=== PATIENT | female | born 1935 | race Caucasian/White ===

== ENCOUNTER 2018-01-24 13:56 | Day surgery (SDC) | payer MEDICARE ==
[2018-01-22 12:28] LABS: Hematocrit 23.7 % (33.0-51.0); Hemoglobin 7.7 g/dL (11.5-16.0); Mean Corpuscular HGB 34.1 pg (26.0-34.0); Mean Corpuscular HGB Conc 32.5 g/dL (31.5-36.5); Mean Corpuscular Volume 105 fL (80-100); RDW Coefficient Variation 22.9 % (11.7-14.2); RDW Standard Deviation 83.2 fL (35.1-46.3); Red Blood Cell Count 2.26 M/mm3 (3.80-5.20)
[2018-01-22 12:48] LABS: Platelet Count 27 K/mm3 (150-400)
[2018-01-22 13:28] LABS: BASOPHILS PERCENT MAN 0 % (0-2); LYMPHOCYTES PERCENT MAN 39 % (21-46); SEG NEUTROPHILS PERCENT MAN 55 % (41-73)
[2018-01-22 13:47] LABS: BAND PERCENT MAN 2 % (0-8); EOSINOPHILS PERCENT MAN 0 % (0-6); LYMPHOCYTES % ATYPICAL MANUAL 1 % (0-0); LYMPHOCYTES ABSOLUTE MAN 0.84 K/mm3 (0.84-5.20); MONOCYTES ABSOLUTE MAN 0.04 K/mm3 (0.16-1.47); MONOCYTES PERCENT MAN 2 % (4-13); NEUTROPHILS ABSOLUTE MAN 1.19 K/mm3 (1.96-9.15); TOTAL CELLS COUNTED 92
[2018-01-24] MEDS ORDERED: METF500C PO (14:35)
[2018-01-24] MEDS ORDERED: DILT120ERA PO (14:36)
[2018-01-24] MEDS ORDERED: LOSA50 PO (14:37)
[2018-01-24] MEDS ORDERED: ATOR10 PO (14:37)
[2018-01-24] MEDS ORDERED: LATANOPROST2.5 ML BOTHEYES (14:38)
[2018-01-24] MEDS ORDERED: GLIP5 PO (14:39)
[2018-01-24] MEDS ORDERED: SERT100 PO (14:39)
[2018-01-24] MEDS ORDERED: TIMO10T BOTHEYES (14:40)
[2018-01-24] MEDS ORDERED: ALLO100 PO (14:40)
[2018-01-24] MEDS ORDERED: SITA50T2 PO (14:41)
== END 2018-01-24 18:05 | disposition home or self-care (01) ==
LOC: ATC 13:56 → LAB 13:56 → ATC 14:00
PROVIDERS: Internal Medicine Hematology & Oncology
DX: D46.9 Myelodysplastic syndrome, unspecified (principal); D63.0 Anemia in neoplastic disease; D69.6 Thrombocytopenia, unspecified
CPT/HCPCS: 36415; 36430; 85025; 86850; 86900; 86901; 86923; J7050; P9016

== ENCOUNTER 2018-01-30 13:21 | Day surgery (SDC) | payer MEDICARE ==
[2018-01-29 10:28] LABS: BASOPHILS ABSOLUTE AUTO 0.01 K/mm3 (0.00-0.23); BASOPHILS PERCENT AUTO 1 % (0-2); EOSINOPHILS ABSOLUTE AUTO 0.05 K/mm3 (0.00-0.68); EOSINOPHILS PERCENT AUTO 3 % (0-6); Hematocrit 27.9 % (33.0-51.0); Mean Corpuscular HGB Conc 32.3 g/dL (31.5-36.5); RDW Coefficient Variation 21.3 % (11.7-14.2); RDW Standard Deviation 76.8 fL (35.1-46.3); Red Blood Cell Count 2.73 M/mm3 (3.80-5.20); White Blood Cell Count 1.72 K/mm3 (4.00-11.30)
[2018-01-29 10:39] LABS: IMMATURE GRAN PERCENT AUTO 0 % (0-1); LYMPHOCYTES ABSOLUTE AUTO 0.81 K/mm3 (0.84-5.20); LYMPHOCYTES PERCENT AUTO 47 % (21-46); MONOCYTES PERCENT AUTO 12 % (4-13); Mean Corpuscular Volume 102 fL (80-100); NEUTROPHILS ABSOLUTE AUTO 0.65 K/mm3 (1.96-9.15); NEUTROPHILS PERCENT AUTO 38 % (41-73)
[2018-01-29 10:46] LABS: Platelet Count 11 K/mm3 (150-400)
[~2018-01-30 13:21] MED LIST: ALLO100 PO; ATOR10 PO; DILT120ERA PO; GLIP5 PO; LATANOPROST2.5 ML BOTHEYES; LOSA50 PO; METF500C PO; SERT100 PO; SITA50T2 PO; TIMO10T BOTHEYES
== END 2018-01-30 23:05 | disposition home or self-care (01) ==
LOC: ATC 13:21
PROVIDERS: Internal Medicine Hematology & Oncology
DX: D46.9 Myelodysplastic syndrome, unspecified (principal); D63.0 Anemia in neoplastic disease; D69.6 Thrombocytopenia, unspecified
CPT/HCPCS: 36415; 36430; 85025; 86900; 86901; J7050; P9035

== ENCOUNTER 2018-06-01 00:47 | Day surgery (SDC) | payer OTHER ==
[~2018-06-01 00:47] MED LIST changes: +ANECREAM515 GM TOP; +BENADRYL25 MG PO; +CEPH500 PO; +CHOL10002 PO; +DOCU100 PO; +FURO20 PO; +GAVILAX17 GM PO; +GLIP10 PO; +LOSA25 PO; +Loperamide2 MG PO; +MUPIROCIN15 GM TOP; +ONDA8 PO; +VALACYCLOVIR1000 MG PO; +Ventolin5 MG/1 ML; +Zofran Odt8 MG SL
--- NOTE | 2018-06-01 17:05 | NUR ---
LS AT COMPLETION OF TRANSFUSION: FAINT WHEEZES R MIDDLE AND LOWER LOBES. PT DENIES SOB. NAD.
== END 2018-06-01 16:41 | disposition home or self-care (01) ==
LOC: ATC 00:47
DX: D46.20 Refractory anemia with excess of blasts, unspecified (principal); D63.0 Anemia in neoplastic disease; D69.6 Thrombocytopenia, unspecified; Z87.891 Personal history of nicotine dependence; E11.9 Type 2 diabetes mellitus without complications; Z83.3 Family history of diabetes mellitus; Z99.3 Dependence on wheelchair; D70.9 Neutropenia, unspecified
CPT/HCPCS: 36430; 86900; 86901; J1642; J7050; P9035

== ENCOUNTER 2018-06-02 19:24 | Inpatient (IN) | payer OTHER ==
[~2018-06-02] VITALS: Ht 165.1 cm; Wt 102.4 kg
[2018-06-02 20:00] LABS: Hematocrit 25.1 % (33.0-51.0); Mean Corpuscular HGB 36.9 pg (26.0-34.0); Mean Corpuscular HGB Conc 31.9 g/dL (31.5-36.5); Mean Corpuscular Volume 116 fL (80-100); Mean Platelet Volume 11.2 fL (9.1-12.4); NRBC ABSOLUTE 0.02 K/mm3 (0.00-0.02); NRBC Auto 2.6 /100 WBC (0.0-0.2); RDW Coefficient Variation 18.9 % (11.7-14.2); RDW Standard Deviation 81.9 fL (35.1-46.3); Red Blood Cell Count 2.17 M/mm3 (3.80-5.20)
[2018-06-02 20:03] LABS: BASOPHILS PERCENT AUTO 0 % (0-2); EOSINOPHILS ABSOLUTE AUTO 0.05 K/mm3 (0.00-0.68); EOSINOPHILS PERCENT AUTO 7 % (0-6); IMMATURE GRAN PERCENT AUTO 0 % (0-1); LYMPHOCYTES ABSOLUTE AUTO 0.69 K/mm3 (0.84-5.20); LYMPHOCYTES PERCENT AUTO 90 % (21-46); MONOCYTES ABSOLUTE AUTO 0.01 K/mm3 (0.16-1.47); MONOCYTES PERCENT AUTO 1 % (4-13); NEUTROPHILS ABSOLUTE AUTO 0.02 K/mm3 (1.96-9.15); NEUTROPHILS PERCENT AUTO 3 % (41-73); Platelet Count 50 K/mm3 (150-400)
[2018-06-02 20:05] LABS: White Blood Cell Count 0.77 K/mm3 (4.00-11.30)
[2018-06-02 20:25] LABS: Albumin, Blood 3.3 g/dL (3.4-5.0); Albumin/Globulin Ratio 0.8 (0.8-1.8); Bilirubin, Total 0.6 mg/dL (0.1-1.0); Bun/Creatinine Ratio 25.8 (12.0-20.0); Calcium, Blood 9.1 mg/dL (8.5-10.1); Creatinine, Blood 1.24 mg/dL (0.40-1.00); Globulin, Blood 4.2 g/dL (2.2-4.0); Potassium, Blood 4.7 mmol/L (3.5-5.5); Total Protein, Blood 7.5 g/dL (6.4-8.2)
[2018-06-03 03:30] LABS: Bun/Creatinine Ratio 27.4 (12.0-20.0); Calcium, Blood 8.4 mg/dL (8.5-10.1); Creatinine, Blood 1.24 mg/dL (0.40-1.00); Potassium, Blood 4.6 mmol/L (3.5-5.5)
--- NOTE | 2018-06-03 03:32 | NUR ---
06/03/18 0220 PT C/O CHILLS AND SHAKING AT 0145. WARM BLANKET GIVEN. TEMP = 100.2 . RN RECHECKED TEMP AT 0220 AND TEMP AT 103.3 F . C/O NECK AND HEADACHE WITH DRY HEAVING. PAGED DR TABOR AND INFORMED OF EVENTS. SEE ORDERS FOR BLOOD CULTURES, ANTI-EMETIC AND IV FLUIDS. MD STATES PT CAN HAVE TYLENOL FOR DISCOMFORT. SEE MAR FOR MEDS GIVEN.
--- NOTE | 2018-06-03 07:32 | NUR ---
06/03/18 0615 PT SLEEPING WITHOUT DISTRESS. VITALS STABLE EAR;IER. SEE PREVIOUS NOTES.
--- NOTE | 2018-06-03 19:12 | NUR ---
PATIENT UNEVENTFUL MOST OF SHIFT. DR. MCDERMOTT WANTED TO DISCHARGE PATIENT HOME WITH FAMILY APPROX 1600 THIS AFTERNOON. HE DISCUSSED CARE EXTENSIVELY WITH FAMILY AND EVERYONE WAS IN AGREEANCE. 15 MINUTES AFTER HE LEFT PATIENT STARTED HAVING "CHILLS" AND SHAKING. FAMILY CALLED RN TO THE ROOM. PATIENT'S VITAL SIGNS ARE WNL AND SHE WAS AFIBRILE. MORE VITAL SIGNS WERE TAKEN 20 MINUTES LATER WITH NO CHANGE. DR MCDERMOTT WAS NOTIFIED ABOUT NEW SYMPTOMS. ANTIBIOTICS WERE CHANGED AND PATIENT DISCHARGE WAS HELD OFF. IV ACCESS WAS LOST LAST MINUTE, UNABLE TO START NEW IV. REPORT GIVEN TO NIGHT RN, CHARGE NURSE NOTIFIED OF IV
--- NOTE | 2018-06-04 00:41 | NUR ---
NEW IV NEW IV PLACED BY PEDRO PERSON IN R FA. R AC IV NO LONGER WORKS, HAS NOT BEEN REMOVED OF YET DUE TO PT IS SLEEPING. WILL BE REMOVED AT A LATER TIME.
--- NOTE | 2018-06-04 04:54 | NUR ---
SHIFT SUMMARY PT ADMITTED FOR CELLULITIS OF THE LABIA. CRITICAL WBC COUNT OF 0.77 YESTERDAY. FULL CODE. NEUTROPENIC DIET. BEDREST. SCDS. CBG AT AND HS. TELE NSR AT A RATE OF 66 PER BUSINESS DEVELOPMENT CONSULTANT. MEDS WHOLE WITH WATER. 1 PERSON ASSIST. UPON ARRIVAL ON SHIFT PT DID NOT HAVE AN IV. UNABLE TO ADMINISTER MEDICATIONS PER EMAR. CALL TO PHARMACY AND SPOKE TO PHARMACIST TO ADVICE NEED FOR CHANGE IN TIME OF START OF NEWLY ORDERED VANCO. PT HAS APPEARED TO SLEEP COMFORTABLY MOST OF THE NIGHT WITH NO APPARENT SIGNS OF ACUTE DISTRESS. ABLE TO MAKE NEEDS KNOWN AND CALL LIGHT IN REACH.
[2018-06-04 08:59] LABS: Hematocrit 23.2 % (33.0-51.0); Hemoglobin 7.4 g/dL (11.5-16.0); Mean Corpuscular HGB 38.1 pg (26.0-34.0); Mean Corpuscular HGB Conc 31.9 g/dL (31.5-36.5); Mean Platelet Volume 10.5 fL (9.1-12.4); RDW Coefficient Variation 19.4 % (11.7-14.2); RDW Standard Deviation 83.3 fL (35.1-46.3); Red Blood Cell Count 1.94 M/mm3 (3.80-5.20)
[2018-06-04 09:30] LABS: BASOPHILS PERCENT AUTO 0 % (0-2); EOSINOPHILS ABSOLUTE AUTO 0.05 K/mm3 (0.00-0.68); EOSINOPHILS PERCENT AUTO 5 % (0-6); IMMATURE GRAN PERCENT AUTO 0 % (0-1); LYMPHOCYTES PERCENT AUTO 92 % (21-46); MONOCYTES ABSOLUTE AUTO 0.01 K/mm3 (0.16-1.47); MONOCYTES PERCENT AUTO 1 % (4-13); Mean Corpuscular Volume 120 fL (80-100); NEUTROPHILS ABSOLUTE AUTO 0.02 K/mm3 (1.96-9.15); NEUTROPHILS PERCENT AUTO 2 % (41-73)
[2018-06-04 09:33] LABS: Platelet Count 33 K/mm3 (150-400); White Blood Cell Count 0.98 K/mm3 (4.00-11.30)
--- NOTE | 2018-06-04 18:09 | NUR ---
SUMMARY PT SITTING UP IN BED JUST FINISHED EATING HER DINNER, PT HAS BEEN PLEASANT AND COOPERATIVE WITH CARE, FAMILY HAS BEEN IN TO VISIT, DR GREWAL HAS BEEN CONSULTED AND NEW ORDERS ARE IN, PT DID COMPLAIN OF CHILLS ONCE TODAY WITH NO SPIKE IN TEMP, VSS, NO ACUTE CHANGES, WILL CONT TO MONITOR
[2018-06-04 18:25] LABS: Adenovirus Not Detected (NOT DETECT); Bordetella pertussis Not Detected (NOT DETECT); Chlamydophila pneumoniae Not Detected (NOT DETECT); Coronavirus 229E Not Detected (NOT DETECT); Coronavirus HKU1 Not Detected (NOT DETECT); Coronavirus NL63 Not Detected (NOT DETECT); Coronavirus OC43 Not Detected (NOT DETECT); Human Metapneumovirus Not Detected (NOT DETECT); Human Rhinovirus/Enterovirus Not Detected (NOT DETECT); Influenza A Not Detected (NOT DETECT); Influenza A/2009-H1 Not Detected (NOT DETECT); Influenza A/H1 Not Detected (NOT DETECT); Influenza A/H3 Not Detected (NOT DETECT); Influenza B Not Detected (NOT DETECT); Mycoplasma pneumoniae Not Detected (NOT DETECT); Parainfluenza Virus 1 Not Detected (NOT DETECT); Parainfluenza Virus 2 Not Detected (NOT DETECT); Parainfluenza Virus 3 Not Detected (NOT DETECT); Parainfluenza Virus 4 Not Detected (NOT DETECT); Respiratory Syncytial Virus Not Detected (NOT DETECT)
--- NOTE | 2018-06-05 03:57 | NUR ---
SHIFT SUMMARY: PT IS ALERT AND ORIENTED. PT IS CALM AND COOPERATIVE WITH CARE. PT CALLS APPROPRIATELY. PT IS A ONE PERSON ASSIST TO THE BSC. PT REPORTS NECK PAIN, GAVE PRN TYLENOL. PT UP TO THE BSC ON SEVERAL OCCASIONS. PT DENIES NAUSEA AND VOMITING. PT IS VISIBLY SOB UPON EXERTION, SATS > 90% ON ROOM AIR. POSSIBLE DC TODAY. NO ACUTE CHANGES OR COMPLICATIONS THIS SHIFT. WILL REPORT TO DAY NURSE.
[2018-06-05 04:59] LABS: Hematocrit 21.5 % (33.0-51.0); Hemoglobin 6.9 g/dL (11.5-16.0); Mean Corpuscular HGB 37.5 pg (26.0-34.0); Mean Corpuscular HGB Conc 32.1 g/dL (31.5-36.5); Mean Platelet Volume 12.3 fL (9.1-12.4); RDW Coefficient Variation 18.8 % (11.7-14.2); RDW Standard Deviation 81.2 fL (35.1-46.3); Red Blood Cell Count 1.84 M/mm3 (3.80-5.20)
[2018-06-05 05:04] LABS: BASOPHILS PERCENT AUTO 0 % (0-2); EOSINOPHILS ABSOLUTE AUTO 0.04 K/mm3 (0.00-0.68); EOSINOPHILS PERCENT AUTO 5 % (0-6); IMMATURE GRAN PERCENT AUTO 0 % (0-1); LYMPHOCYTES ABSOLUTE AUTO 0.75 K/mm3 (0.84-5.20); LYMPHOCYTES PERCENT AUTO 89 % (21-46); MONOCYTES ABSOLUTE AUTO 0.02 K/mm3 (0.16-1.47); MONOCYTES PERCENT AUTO 2 % (4-13); Mean Corpuscular Volume 117 fL (80-100); NEUTROPHILS ABSOLUTE AUTO 0.03 K/mm3 (1.96-9.15); NEUTROPHILS PERCENT AUTO 4 % (41-73)
[2018-06-05 05:05] LABS: Platelet Count 31 K/mm3 (150-400); White Blood Cell Count 0.84 K/mm3 (4.00-11.30)
[2018-06-05 05:44] LABS: Creatinine, Blood 1.14 mg/dL (0.40-1.00); Vancomycin, Trough 10.4 ug/mL (5.0-10.0)
--- NOTE | 2018-06-05 17:40 | NUR ---
SUMMARY PT SITTING UP IN BED EATING DINNER, PT HAS BEEN PLEASANT AND COOPERATIVE WITH CARE, RECIEVED I UNIT OF PRBC'S THIS MORNING, BRYNN WELL, PT HAS BEEN UP WITH ONE PERSON ASSIST TO THE COMMODE, PT WAS ABLE TO GET UP TO THE SHOWER WITH ASSIST TODAY, PT'S DAUGHTERS HAVE BEEN IN TO VISIT, VSS, NO ACUTE CHANGES, WILL CONT TO MONITOR
--- NOTE | 2018-06-06 01:22 | NUR ---
ASSUMED CARE OF PATIENT AT APPROXIMATELY 1905 FROM LILA Baker RN. PATIENT ALERT AND ORIENTED X4; SBA TO BEDSIDE COMMODE; ATTENDS IN PLACE FOR STRESS INCONTINENCE. PATIENT DENIES PAIN, NUMBNESS, TINGLING, DIZZINESS OR NAUSEA. PATIENT REPORTS SHE IS READY TO GO HOME; HAD TROUBLE FALLING ASLEEP TONIGHT; REPORTS MISSES HER HOME. NEUTROPENIC PRECAUTIONS. SR W/BBB ON TELE; OXYGEN SATURATION ABOVE 90% ON ROOM AIR. 2 UNITS FOR 214 CBG. PIV S/L. PATIENT CURRENTLY SLEEPING IN BED; CALL LIGHT IN REACH; BED IN LOWEST POSISTION; BED ALARM ON; WILL CONTINUE TO MONITOR AND ASSESS UNTIL END OF SHIFT.
[2018-06-06 05:23] LABS: Hematocrit 23.6 % (33.0-51.0); Hemoglobin 7.6 g/dL (11.5-16.0); Mean Corpuscular HGB 35.7 pg (26.0-34.0); Mean Corpuscular HGB Conc 32.2 g/dL (31.5-36.5); Mean Platelet Volume 11.4 fL (9.1-12.4); RDW Coefficient Variation 21.4 % (11.7-14.2); RDW Standard Deviation 86.1 fL (35.1-46.3); Red Blood Cell Count 2.13 M/mm3 (3.80-5.20)
[2018-06-06 05:30] LABS: Mean Corpuscular Volume 111 fL (80-100); White Blood Cell Count 0.82 K/mm3 (4.00-11.30)
[2018-06-06 05:32] LABS: Platelet Count 35 K/mm3 (150-400)
[2018-06-06 05:54] LABS: BASOPHILS PERCENT MAN 0 % (0-2); EOSINOPHILS ABSOLUTE MAN 0.04 K/mm3 (0.00-0.68); EOSINOPHILS PERCENT MAN 6 % (0-6); LYMPHOCYTES % ATYPICAL MANUAL 3 % (0-0); LYMPHOCYTES ABSOLUTE MAN 0.74 K/mm3 (0.84-5.20); LYMPHOCYTES PERCENT MAN 88 % (21-46); MONOCYTES PERCENT MAN 0 % (4-13); NEUTROPHILS ABSOLUTE MAN 0.02 K/mm3 (1.96-9.15); SEG NEUTROPHILS PERCENT MAN 3 % (41-73); TOTAL CELLS COUNTED 100
--- NOTE | 2018-06-06 06:19 | NUR ---
PATIENT REPORTED THAT SHE WAS NAUSEOUS ONCE THIS AM AFTER AMBULATING TO BEDSIDE COMMODE; REPORTS SHE WILL FEEL BETTER AFTER SHE LAYS DOWN FOR A WHILE AND REFUSED INTERVENTIONS. PATIENT SLEPT ABOUT SIX HOURS LAST NIGHT; PATIENT REPORTS SHE WANTS TO GO HOME. WILL CONTINUE TO MONITOR AND ASSESS UNTIL END OF SHIFT.
[2018-06-06] MEDS ORDERED: ONDA4ODT MM (11:22)
[2018-06-06] MEDS ORDERED: Augmentin 875-1 EACH PO (11:24)
--- NOTE | 2018-06-06 13:29 | NUR ---
PATIENT DISCHARGED WITH FAMILY. LEFT VIA W/C. ABLE TO MAKE HER NEEDS KNOWN. IV REMOVED.
== END 2018-06-06 13:02 | disposition home or self-care (01) | DRG 810 ==
LOC: ER 19:24 → MEDS 19:25 → ER 22:32 → MEDS 22:32 → ENPENDDIS 06-06 10:47 → MEDS 06-06 13:02
PROVIDERS: Emergency Medicine; Internal Medicine Endocrinology, Diabetes & Metabolism; Internal Medicine Infectious Disease; Student in an Organized Health Care Education/Training Program; ADMIT Hospitalist
PROC: 30233N1 Transfusion of Nonautologous Red Blood Cells into Peripheral Vein, Percutaneous Approach (ICD-10-PCS; principal; 2018-06-05)
DX: D70.9 Neutropenia, unspecified (principal); N76.2 Acute vulvitis; A60.04 Herpesviral vulvovaginitis; N94.9 Unspecified condition associated with female genital organs and menstrual cycle; D46.9 Myelodysplastic syndrome, unspecified; M10.9 Gout, unspecified; J44.9 Chronic obstructive pulmonary disease, unspecified; N18.3 Chronic kidney disease, stage 3 (moderate); Z87.891 Personal history of nicotine dependence; D69.6 Thrombocytopenia, unspecified; E66.9 Obesity, unspecified; Z68.35 Body mass index [BMI] 35.0-35.9, adult; I12.9 Hypertensive chronic kidney disease with stage 1 through stage 4 chronic kidney disease, or unspecified chronic kidney disease
CPT/HCPCS: 36415; 36430; 71045; 76857; 80048; 80053; 80202; 82565; 82947; 85014; 85018; 85025; 86850; 86900; 86901; 86923; 87040; 87305; 87486; 87581; 87633; 87798; 96361; 96365; 96366; 96367; 96375; 96376; 99284; G0378; J0295; J0690; J2405; J2543; J3370; J7030; J7050; P9016

== ENCOUNTER 2018-06-08 11:39 | Emergency (ER) | payer OTHER ==
[~2018-06-08] VITALS: Ht 165.1 cm; Wt 98.9 kg
[~2018-06-08 11:39] MED LIST changes: +Augmentin 875-1 EACH PO; +ONDA4ODT MM
[2018-06-08 12:22] LABS: Hematocrit 24.3 % (33.0-51.0); Hemoglobin 7.7 g/dL (11.5-16.0); Mean Corpuscular HGB 35.8 pg (26.0-34.0); Mean Corpuscular HGB Conc 31.7 g/dL (31.5-36.5); Mean Corpuscular Volume 113 fL (80-100); Mean Platelet Volume 12.1 fL (9.1-12.4); RDW Coefficient Variation 20.7 % (11.7-14.2); RDW Standard Deviation 85.8 fL (35.1-46.3); Red Blood Cell Count 2.15 M/mm3 (3.80-5.20); White Blood Cell Count 1.16 K/mm3 (4.00-11.30)
[2018-06-08 12:26] LABS: Platelet Count 39 K/mm3 (150-400)
[2018-06-08 12:36] LABS: Alanine Aminotransfer (ALT/SGP 14 U/L (12-78); Albumin, Blood 2.6 g/dL (3.4-5.0); Albumin/Globulin Ratio 0.6 (0.8-1.8); Alk Phos 95 U/L (50-136); Anion Gap 9 mmol/L (6-16); Aspartate Aminotrans (AST/SGOT 14 U/L (12-37); Bilirubin, Total 0.7 mg/dL (0.1-1.0); Blood Urea Nitrogen 24 mg/dL (8-24); Bun/Creatinine Ratio 25.3 (12.0-20.0); CO2, Blood 25 mmol/L (21-32); Calcium, Blood 8.6 mg/dL (8.5-10.1); Chloride, Blood 106 mmol/L (98-108); Creatinine, Blood 0.95 mg/dL (0.40-1.00); Globulin, Blood 4.1 g/dL (2.2-4.0); Glomerular Filtration Rate 60 (60-); Glucose, Blood 97 mg/dL (70-99); Potassium, Blood 3.9 mmol/L (3.5-5.5); Sodium, Blood 140 mmol/L (136-145); Total Protein, Blood 6.7 g/dL (6.4-8.2); Troponin I <0.015 ng/mL (0.000-0.040)
[2018-06-08 12:40] LABS: BASOPHILS ABSOLUTE MAN 0.02 K/mm3 (0.00-0.23); BASOPHILS PERCENT MAN 2 % (0-2); EOSINOPHILS ABSOLUTE MAN 0.02 K/mm3 (0.00-0.68); EOSINOPHILS PERCENT MAN 2 % (0-6); LYMPHOCYTES ABSOLUTE MAN 1.09 K/mm3 (0.84-5.20); LYMPHOCYTES PERCENT MAN 94 % (21-46); MONOCYTES PERCENT MAN 0 % (4-13); NEUTROPHILS ABSOLUTE MAN 0.02 K/mm3 (1.96-9.15); SEG NEUTROPHILS PERCENT MAN 2 % (41-73); TOTAL CELLS COUNTED 50
[2018-06-08] MEDS ORDERED: Arthritis Pai42.5 GM TOP (13:04)
== END 2018-06-08 13:44 | disposition home or self-care (01) ==
LOC: ER 11:39
PROVIDERS: Emergency Medicine
DX: M25.512 Pain in left shoulder (principal); J44.9 Chronic obstructive pulmonary disease, unspecified; E11.9 Type 2 diabetes mellitus without complications; I10 Essential (primary) hypertension; Z86.711 Personal history of pulmonary embolism; Z88.5 Allergy status to narcotic agent; Z79.899 Other long term (current) drug therapy; Z79.84 Long term (current) use of oral hypoglycemic drugs
CPT/HCPCS: 71046; 80053; 84484; 85025; 93005; 93010; 99284-25

== ENCOUNTER 2018-06-22 00:02 | Day surgery (SDC) | payer OTHER ==
[~2018-06-22 00:02] MED LIST changes: +Arthritis Pai42.5 GM TOP
== END 2018-06-22 18:06 | disposition home or self-care (01) ==
LOC: ATC 00:02
DX: D46.9 Myelodysplastic syndrome, unspecified (principal); D63.0 Anemia in neoplastic disease
CPT/HCPCS: 36430; 86850; 86900; 86901; 86923; J7050; P9016

== ENCOUNTER → 2018-07-04 | Outpatient (CLI) | payer OTHER ==
[2018-07-04 13:54] LABS: BASOPHILS ABSOLUTE AUTO 0.01 K/mm3 (0.00-0.23); BASOPHILS PERCENT AUTO 1 % (0-2); EOSINOPHILS ABSOLUTE AUTO 0.05 K/mm3 (0.00-0.68); EOSINOPHILS PERCENT AUTO 2 % (0-6); Hematocrit 31.7 % (33.0-51.0); Hemoglobin 10.1 g/dL (11.5-16.0); IMMATURE GRAN PERCENT AUTO 0 % (0-1); LYMPHOCYTES ABSOLUTE AUTO 1.43 K/mm3 (0.84-5.20); LYMPHOCYTES PERCENT AUTO 67 % (21-46); MONOCYTES ABSOLUTE AUTO 0.06 K/mm3 (0.16-1.47); MONOCYTES PERCENT AUTO 3 % (4-13); Mean Corpuscular HGB 34.9 pg (26.0-34.0); Mean Corpuscular HGB Conc 31.9 g/dL (31.5-36.5); Mean Platelet Volume 10.8 fL (9.1-12.4); NEUTROPHILS ABSOLUTE AUTO 0.59 K/mm3 (1.96-9.15); NEUTROPHILS PERCENT AUTO 28 % (41-73); NRBC ABSOLUTE 0.04 K/mm3 (0.00-0.02); NRBC Auto 1.9 /100 WBC (0.0-0.2); RDW Coefficient Variation 21.7 % (11.7-14.2); RDW Standard Deviation 82.4 fL (35.1-46.3); Red Blood Cell Count 2.89 M/mm3 (3.80-5.20); White Blood Cell Count 2.14 K/mm3 (4.00-11.30)
[2018-07-04 14:00] LABS: Mean Corpuscular Volume 110 fL (80-100)
[2018-07-04 14:03] LABS: Albumin, Blood 3.4 g/dL (3.4-5.0); Albumin/Globulin Ratio 0.8 (0.8-1.8); Bilirubin, Total 0.7 mg/dL (0.1-1.0); Calcium, Blood 9.2 mg/dL (8.5-10.1); Creatinine, Blood 1.2 mg/dL (0.40-1.00); Globulin, Blood 4.1 g/dL (2.2-4.0); Potassium, Blood 4.5 mmol/L (3.5-5.5); Total Protein, Blood 7.5 g/dL (6.4-8.2)
[2018-07-04 14:04] LABS: Platelet Count 35 K/mm3 (150-400)
== END | disposition home or self-care (01) ==
LOC: LAB 13:08 → LAB SHORT 13:08
PROVIDERS: Internal Medicine Hematology & Oncology
DX: D46.9 Myelodysplastic syndrome, unspecified (principal); D69.6 Thrombocytopenia, unspecified; D63.0 Anemia in neoplastic disease; D70.1 Agranulocytosis secondary to cancer chemotherapy; T45.1X5A Adverse effect of antineoplastic and immunosuppressive drugs, initial encounter
CPT/HCPCS: 80053; 85025

== ENCOUNTER 2018-08-15 10:16 | Day surgery (SDC) | payer OTHER | END 2018-08-15 16:11 | disposition home or self-care (01) | LOC: ATC 10:16 | DX: D69.6 Thrombocytopenia, unspecified (principal); D46.9 Myelodysplastic syndrome, unspecified; C80.1 Malignant (primary) neoplasm, unspecified; D63.0 Anemia in neoplastic disease; Z87.891 Personal history of nicotine dependence; Z88.5 Allergy status to narcotic agent | CPT/HCPCS: 36430; 86850; 86900; 86901; 86923; J1642; J7050; P9016 ==

== ENCOUNTER 2018-08-22 00:20 | Day surgery (SDC) | payer OTHER | END 2018-08-22 10:46 | disposition home or self-care (01) | LOC: ATC 00:20 → LAB 00:20 → ATC 10:46 → LAB 15:49 | DX: D46.9 Myelodysplastic syndrome, unspecified (principal); D69.6 Thrombocytopenia, unspecified; C80.1 Malignant (primary) neoplasm, unspecified; D63.0 Anemia in neoplastic disease; Z87.891 Personal history of nicotine dependence; D70.1 Agranulocytosis secondary to cancer chemotherapy | CPT/HCPCS: 36430; 86900; 86901; J7050; P9053 ==

== ENCOUNTER 2018-08-29 12:23 | Day surgery (SDC) | payer OTHER ==
--- NOTE | 2018-08-29 15:01 | NUR ---
PLATELETS ARE INFUSING. NO COMPLAINTS OF ADVERSE REACTIONS. PT LAYING IN BED, RESTING. WILL CONTINUE TO MONITOR
--- NOTE | 2018-08-29 17:11 | NUR ---
PT IS ALERT AND ORIENTED AND COOPERATIVE WITH CARE. SHE IS TELIDA. THE PLAN IS FOR HER TO FINISH THE BLOOD TRANSFUSIONS AND THEN BE DC'D AND SENT HOME. HER SON-IN-LAW WILL PICK HER UP. NO COMPLAINTS. WILL CONTINUE TO MONITOR
--- NOTE | 2018-08-29 22:55 | NUR ---
PATIENT FINISHED TRANSFUSING SECOND UNIT OF PRBC. TOLERATED WELL; VITAL SIGNS WNL. PATIENT IV DC'D. PERSONAL BELONGING IN HER BAG. SON IN LAW PICKING HER UP VIA HER W/C IN ROOM. CALL LIGHT IN REACH.
--- NOTE | 2018-08-29 23:16 | NUR ---
SON IN LAW PICKED UP PATIENT VIA HER PERSONAL W/C. DC COMPLETE. PERSONAL BELONGINGS W/PATIENT.
== END 2018-08-29 23:09 | disposition home or self-care (01) ==
LOC: TRN 12:23 → MEDS 23:09 → TRN 23:09 → EDSTATUS 08-30 13:15
DX: D46.9 Myelodysplastic syndrome, unspecified (principal); D63.0 Anemia in neoplastic disease
CPT/HCPCS: 36430; 86850; 86900; 86901; 86923; J1447; J7050; P9016; P9035

== ENCOUNTER 2018-09-12 11:42 | Day surgery (SDC) | payer OTHER ==
--- NOTE | 2018-09-12 13:12 | NUR ---
PT ARRIVED TO ROOM VIA W/C, C/O WEAKNESS AND DIZZINESS, DAUGHTER AT BEDSIDE, ORIENTED TO ROOM LAYOUT AND CALL SYSTEM.
--- NOTE | 2018-09-12 17:59 | NUR ---
PRBC STILL INFUSING, VSS, PT TOLERATING WELL, EATING DINNER.
--- NOTE | 2018-09-12 20:11 | NUR ---
2ND UNIT OF PRBC COMPLETED. LUNGS DIM/CLEAR, VSS. PT BRYNN WELL. IV REMOVED. PT ASSISTED TO COMMODE, REP WEAKNESS WHEN UP PER BASELINE. SON IN LAW IN TO TAKE PT HOME. QUESTIONS ANSWERED, BELONGINGS SENT W/PT.
== END 2018-09-12 20:15 | disposition home or self-care (01) ==
LOC: TRN 11:42 → SURS 12:55 → TRN 20:15 → EDSTATUS 09-13 07:59
DX: D46.21 Refractory anemia with excess of blasts 1 (principal); D61.818 Other pancytopenia
CPT/HCPCS: 36430; 86850; 86900; 86901; 86923; J7030; P9016; P9035

== ENCOUNTER 2018-09-19 10:18 | Day surgery (SDC) | payer OTHER ==
[2018-09-18 12:03] LABS: BASOPHILS PERCENT AUTO 0 % (0-2); Hematocrit 24.5 % (33.0-51.0); LYMPHOCYTES ABSOLUTE AUTO 0.92 K/mm3 (0.84-5.20); LYMPHOCYTES PERCENT AUTO 64 % (21-46); MONOCYTES ABSOLUTE AUTO 0.06 K/mm3 (0.16-1.47); MONOCYTES PERCENT AUTO 4 % (4-13); Mean Corpuscular HGB 34.5 pg (26.0-34.0); Mean Corpuscular HGB Conc 32.7 g/dL (31.5-36.5); Mean Platelet Volume 11.5 fL (9.1-12.4); RDW Coefficient Variation 19.3 % (11.7-14.2); RDW Standard Deviation 74.2 fL (35.1-46.3); Red Blood Cell Count 2.32 M/mm3 (3.80-5.20); White Blood Cell Count 1.44 K/mm3 (4.00-11.30)
[2018-09-18 12:29] LABS: EOSINOPHILS ABSOLUTE AUTO 0.01 K/mm3 (0.00-0.68); EOSINOPHILS PERCENT AUTO 1 % (0-6); IMMATURE GRAN PERCENT AUTO 0 % (0-1); Mean Corpuscular Volume 106 fL (80-100); NEUTROPHILS ABSOLUTE AUTO 0.45 K/mm3 (1.96-9.15); NEUTROPHILS PERCENT AUTO 31 % (41-73)
[2018-09-18 12:30] LABS: Platelet Count 6 K/mm3 (150-400)
== END 2018-09-19 22:41 | disposition home or self-care (01) ==
LOC: ATC 10:18 → LAB HD 10:18 → ATC 22:41
PROVIDERS: Internal Medicine Hematology & Oncology
DX: D46.9 Myelodysplastic syndrome, unspecified (principal); D63.0 Anemia in neoplastic disease; D69.8 Other specified hemorrhagic conditions; E11.9 Type 2 diabetes mellitus without complications; Z87.891 Personal history of nicotine dependence; Z79.899 Other long term (current) drug therapy; Z79.84 Long term (current) use of oral hypoglycemic drugs; Z88.5 Allergy status to narcotic agent
CPT/HCPCS: 36415; 85025; 86900; 86901; P9035

== ENCOUNTER 2018-09-30 12:37 | Inpatient (IN) | payer OTHER ==
[~2018-09-30] VITALS: Ht 165.1 cm; Wt 90.7 kg
[~2018-09-30 12:37] MED LIST changes: +AMOX875 PO; +TIMO.25OPS BOTHEYES; -TIMO10T BOTHEYES; +VALA500 PO; -VALACYCLOVIR1000 MG PO
[2018-09-30 13:34] LABS: Hematocrit 25.9 % (33.0-51.0); Hemoglobin 8.4 g/dL (11.5-16.0); Mean Corpuscular HGB 32.2 pg (26.0-34.0); Mean Corpuscular HGB Conc 32.4 g/dL (31.5-36.5); Mean Corpuscular Volume 99 fL (80-100); RDW Coefficient Variation 16.6 % (11.7-14.2); RDW Standard Deviation 58.3 fL (35.1-46.3); Red Blood Cell Count 2.61 M/mm3 (3.80-5.20)
[2018-09-30 13:42] LABS: Alanine Aminotransfer (ALT/SGP 34 U/L (12-78); Albumin, Blood 2.5 g/dL (3.4-5.0); Albumin/Globulin Ratio 0.6 (0.8-1.8); Alk Phos 94 U/L (50-136); Anion Gap 8 mmol/L (6-16); Aspartate Aminotrans (AST/SGOT 14 U/L (12-37); Bilirubin, Total 1.1 mg/dL (0.1-1.0); Blood Urea Nitrogen 30 mg/dL (8-24); Bun/Creatinine Ratio 23.6 (12.0-20.0); CO2, Blood 22 mmol/L (21-32); Calcium, Blood 9.1 mg/dL (8.5-10.1); Chloride, Blood 102 mmol/L (98-108); Creatinine, Blood 1.27 mg/dL (0.40-1.00); Globulin, Blood 4.4 g/dL (2.2-4.0); Glomerular Filtration Rate 43 (60-); Glucose, Blood 132 mg/dL (70-99); Potassium, Blood 4.3 mmol/L (3.5-5.5); Sodium, Blood 132 mmol/L (136-145); Total Protein, Blood 6.9 g/dL (6.4-8.2); Troponin I <0.015 ng/mL (0.000-0.040)
[2018-09-30 13:48] LABS: BASOPHILS PERCENT AUTO 0 % (0-2); EOSINOPHILS PERCENT AUTO 0 % (0-6); IMMATURE GRAN ABSOLUTE AUTO 0.02 K/mm3 (0.00-0.10); IMMATURE GRAN PERCENT AUTO 4 % (0-1); LYMPHOCYTES ABSOLUTE AUTO 0.39 K/mm3 (0.84-5.20); LYMPHOCYTES PERCENT AUTO 75 % (21-46); MONOCYTES ABSOLUTE AUTO 0.06 K/mm3 (0.16-1.47); MONOCYTES PERCENT AUTO 12 % (4-13); NEUTROPHILS ABSOLUTE AUTO 0.05 K/mm3 (1.96-9.15); NEUTROPHILS PERCENT AUTO 10 % (41-73)
[2018-09-30 13:50] LABS: Platelet Count 2 K/mm3 (150-400)
[2018-09-30 13:54] LABS: White Blood Cell Count 0.52 K/mm3 (4.00-11.30)
[2018-09-30 16:04] LABS: Appearance, Urine Clear (Clear); Bilirubin, Urine Neg (Neg); Blood, Urine Neg (Neg); Color, Urine Yellow (P-Yellow); Glucose Qualitative, Urine Neg (Neg); Ketones, Urine Neg (Neg); Leukocyte Esterase, Urine Neg (Neg); Nitrite, Urine Neg (Neg); Protein, Urine 2+ (Neg); Source, Urine Voided; Specific Gravity, Urine 1.015 (1.003-1.022); Urobilinogen, Urine NORM (Normal)
[2018-09-30 16:19] LABS: Bacteria Mod /hpf; Squamous Epithelial Cells Few /hpf (Few)
--- NOTE | 2018-09-30 17:34 | NUR ---
Initial Visit: Palliative Care Consult for AD/POSLT, Cancer, Medically Fragile. Spoke with Dr Chan before entering Pt's room and received report including appropriateness to discuss hospice as an option. Pt is A&Ox4 and denies pain at this time. Pt's daughter present during visit. Pt denies dyspnea at rest but reports SOB with exertion. Pt denies anxiety at this time. Engaged in therapeutic conversation regarding goals of care. Pt lives at home with her and reports no pentecostal beliefs. Daughter reports Pt's 's health is failing and she takes him to dialysis routinely. Daughter reports living approximately 1 mile away and comes to help with care needs often. Daughter reports Pt's strength has been declining recently and requires assistance with ambulation, and bathing. Pt also has multiple falls. Daughter is tearful at times and expresses concern for Pt. She reports Pt needs caregivers in the home in order for to be safe. Insructed Pt and daughter social service referral will be ordered to aide in medicaid process. Engaged in therpeutic discussion regarding advanced care planning. Educated on disease process and the importance of having oil heaterman plan in place. Discussed hospice option if Pt ever decides to go this route. Discussed POLST with Pt and daughter. Pt expresses interest in completing POLST during visit. Educated Pt on life sustaining measures including risk factors. Pt requests daughter to complete POLST and sign POLST for her. Pt chooses DNR and Limited treatment. Daughter completes and signs POLST. At this time Pt is being transfered to floor and ended visit. Called and spoke with Dr Maher and informed her of Pt choosing DNR. Dr Maher is agreeable with Pt's decision. Plan: Dr Chan signed POLST form. Placed order for code status to be DNR per V/O from Dr Chan. Faxed copy to medical records. Gave orginal POLST to Pt's daughter and gave bedside nurse copy to place in chart. Placed order for social service refferal. Palliative care will remain available for therapetuic visits.
--- NOTE | 2018-09-30 19:28 | NUR ---
SHIFT SUMMARY PT A&OX4, VSS, PENALOZA PAIN TX'D WITH TYLENOL. ABX INFUSING. BRYNN PO. REPORT GIVEN TO PAULA PERSON.
[2018-10-01 04:14] LABS: Hemoglobin 6.6 g/dL (11.5-16.0); Mean Corpuscular HGB 32.5 pg (26.0-34.0); Mean Corpuscular Volume 99 fL (80-100); Mean Platelet Volume 11.2 fL (9.1-12.4); RDW Coefficient Variation 16.2 % (11.7-14.2); RDW Standard Deviation 55.3 fL (35.1-46.3); Red Blood Cell Count 2.03 M/mm3 (3.80-5.20)
[2018-10-01 04:23] LABS: BASOPHILS ABSOLUTE AUTO 0.01 K/mm3 (0.00-0.23); BASOPHILS PERCENT AUTO 2 % (0-2); EOSINOPHILS ABSOLUTE AUTO 0.01 K/mm3 (0.00-0.68); EOSINOPHILS PERCENT AUTO 2 % (0-6); IMMATURE GRAN ABSOLUTE AUTO 0.01 K/mm3 (0.00-0.10); IMMATURE GRAN PERCENT AUTO 2 % (0-1); LYMPHOCYTES ABSOLUTE AUTO 0.34 K/mm3 (0.84-5.20); LYMPHOCYTES PERCENT AUTO 76 % (21-46); MONOCYTES ABSOLUTE AUTO 0.05 K/mm3 (0.16-1.47); MONOCYTES PERCENT AUTO 11 % (4-13); NEUTROPHILS ABSOLUTE AUTO 0.03 K/mm3 (1.96-9.15); NEUTROPHILS PERCENT AUTO 7 % (41-73); Platelet Count 22 K/mm3 (150-400); White Blood Cell Count 0.45 K/mm3 (4.00-11.30)
[2018-10-01 04:33] LABS: Albumin, Blood 2.2 g/dL (3.4-5.0); Albumin/Globulin Ratio 0.6 (0.8-1.8); Bilirubin, Total 0.8 mg/dL (0.1-1.0); Bun/Creatinine Ratio 23.3 (12.0-20.0); Calcium, Blood 8.7 mg/dL (8.5-10.1); Creatinine, Blood 1.46 mg/dL (0.40-1.00); Potassium, Blood 4.1 mmol/L (3.5-5.5); Total Protein, Blood 6.2 g/dL (6.4-8.2)
--- NOTE | 2018-10-01 04:54 | NUR ---
SHIFT SUMMARY PT RESTED WELL T/O NIGHT. AAOX4/LETHARGIC. ELEVATED TEMP NOTED AT START OF CERTIFIED SOLID WASTE FACILITY OPERATOR, NOW WNL. PT UP TO BSC 1 PERSON MODERATE ASSIST. SIPS CLEARS IN WITH MODERATE AMOUNT CLEAR/YELLOW URINE OUT. CRITICAL WBCs WITH NO CHANGE THIS AM, PLATELETS INCREASED POST UNIT IN ED. DR JOHN TO CONSULT. IV ABX PER ORDERS. ENCOURAGE DEEP BREATHING + REPOSITION WHILE IN BED TOLERATED. NEUTROPENIC PRECAUTIONS. CALL LIGHT IN REACH + PT DEMONSTRATED USE WHEN ASSISTANCE IS REQUESTED.
--- NOTE | 2018-10-01 07:52 | NUR ---
C/O NAUSEA THIS AM, MEDICATED WITH ZOFRAN, HOLD PO MEDS FOR NOW, DENIES ANY OTHER DISCOMFORT, MONITOR.
--- NOTE | 2018-10-01 11:26 | NUR ---
1ST UNIT PRBC STARTED, LUNGS CLEAR, DIMINISHED ON BASES, TOLERATING WELL, VSS, DAUGHTER VISITING, REPORTS BACK PAIN IS SLIGHTLY BETTER AFTER MEDICATED WITH TRAMADOL THIS AM, CONT. TO MONITOR FOR ANY CHANGES.
--- NOTE | 2018-10-01 18:42 | NUR ---
REDNESS NOTED ON LABIA, PT C/O PAIN, TENDER, SLIGHTLY FIRM LUMP NOTED ON L LABIA, DR. TATE NOTIFIED.
--- NOTE | 2018-10-02 05:21 | NUR ---
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 NO ACUTE CHANGES THIS SHIFT, TEMPERATURE DECREASED FROM 100.2 F TO 96.8 F. 02 SATS >95% ON 2L VIA NASAL CANNULA. PT C/O NAUSEA BROUGHT ON BY MOVEMENT, RELIEVED WITH REST AND IV MEDICATION. PT C/O NECK AND BACK PAIN RELIEVED WITH REPOSITIONING AND PO MEDICATION. PT ALSO C/O PAIN IN LABIA WITH MOVEMENT OR TOUCH, REDDNESS AND SWELLING NOTED, NYSTATIN POWDER APPLIED ORDERED, ATTENDS CHANGED PRN. PT IS INCREASINGLY WEAK, SBA TO BEDSIDE COMMODE. AWAITING HOSPICE CONSULT TODAY. WILL CONTINUE TO MONITOR.
[2018-10-02 07:31] LABS: Hematocrit 25.4 % (33.0-51.0); Hemoglobin 8.6 g/dL (11.5-16.0); Mean Corpuscular HGB 31.2 pg (26.0-34.0); Mean Corpuscular HGB Conc 33.9 g/dL (31.5-36.5); Mean Platelet Volume 11.4 fL (9.1-12.4); RDW Coefficient Variation 17.6 % (11.7-14.2); RDW Standard Deviation 55.5 fL (35.1-46.3); Red Blood Cell Count 2.76 M/mm3 (3.80-5.20)
[2018-10-02 07:35] LABS: BASOPHILS ABSOLUTE AUTO 0.01 K/mm3 (0.00-0.23); BASOPHILS PERCENT AUTO 2 % (0-2); EOSINOPHILS PERCENT AUTO 0 % (0-6); IMMATURE GRAN PERCENT AUTO 0 % (0-1); LYMPHOCYTES PERCENT AUTO 71 % (21-46); MONOCYTES ABSOLUTE AUTO 0.06 K/mm3 (0.16-1.47); MONOCYTES PERCENT AUTO 14 % (4-13); Mean Corpuscular Volume 92 fL (80-100); NEUTROPHILS ABSOLUTE AUTO 0.05 K/mm3 (1.96-9.15); NEUTROPHILS PERCENT AUTO 12 % (41-73); Platelet Count 14 K/mm3 (150-400)
[2018-10-02 07:37] LABS: White Blood Cell Count 0.42 K/mm3 (4.00-11.30)
--- NOTE | 2018-10-02 18:13 | NUR ---
SHIFT SUMMARY PT RECEIVED ONE UNIT OF PLATLETS THIS MORNING, TOLERATED PROCEDURE WELL. HAD A FEVER THIS AFTERNOON OF 102.1 THAT WAS ALLEVIATED WITH TYLENOL. DENIED ANY PAIN OR DISCOMFORT T/O SHIFT. LEFT LABIA CONTINUES TO BE RED, SWOLLEN, AND IRRITATED. CONTINUES TO BE VERY WEAK AND STRUGGLES WITH ADLS.
--- NOTE | 2018-10-03 04:32 | NUR ---
SHIFT SUMMARY VSS THIS SHIFT, O2 SATS >90% ON RA. PT DENIED PAIN THROUGHOUT SHIFT, BECAME NAUSEATED AND LIGHTHEADED AFTER RETURNING TO BED FROM BEDSIDE COMMODE. INCREASED WEAKNESS WITH AMBULATION. PT C/O CONSTIPATION, WILL PROVIDE BOWEL CARE ORDERED. PO INTAKE REMAINS MINIMAL, ENCOURAGING PO FLUID INTAKE TOLERATED. WILL CONTINUE TO MONITOR.
[2018-10-03 06:46] LABS: Hematocrit 23.9 % (33.0-51.0); Hemoglobin 8.2 g/dL (11.5-16.0); Mean Corpuscular HGB 31.9 pg (26.0-34.0); Mean Corpuscular HGB Conc 34.3 g/dL (31.5-36.5); Mean Corpuscular Volume 93 fL (80-100); Mean Platelet Volume 10.2 fL (9.1-12.4); RDW Coefficient Variation 17.2 % (11.7-14.2); RDW Standard Deviation 54.7 fL (35.1-46.3); Red Blood Cell Count 2.57 M/mm3 (3.80-5.20)
[2018-10-03 07:04] LABS: BASOPHILS PERCENT AUTO 0 % (0-2); EOSINOPHILS PERCENT AUTO 0 % (0-6); IMMATURE GRAN PERCENT AUTO 0 % (0-1); LYMPHOCYTES ABSOLUTE AUTO 0.33 K/mm3 (0.84-5.20); LYMPHOCYTES PERCENT AUTO 81 % (21-46); MONOCYTES ABSOLUTE AUTO 0.05 K/mm3 (0.16-1.47); MONOCYTES PERCENT AUTO 12 % (4-13); NEUTROPHILS ABSOLUTE AUTO 0.03 K/mm3 (1.96-9.15); NEUTROPHILS PERCENT AUTO 7 % (41-73)
[2018-10-03 07:06] LABS: Platelet Count 39 K/mm3 (150-400); White Blood Cell Count 0.41 K/mm3 (4.00-11.30)
--- NOTE | 2018-10-03 08:16 | NUR ---
ELEVATED TEMPERATURE PT TEMPERATURE WAS 100.2 DURING INITIAL ASSESSMENT AT 0700 THIS MORNING. HOWEVER, ROOM TEMPERATURE WAS WARM AND THERMOSTAT WAS AT 85 DEGREES. UPON REASSESSMENT AND DECREASED ROOM TEMP/ADL CARE, PT'S TEMPERATURE WAS 98.5. WILL CONTINUE TO MONITOR.
--- NOTE | 2018-10-03 08:32 | NUR ---
assessment agree with student nurse assessment
--- NOTE | 2018-10-03 18:06 | NUR ---
PT IS WEAK AND DECONDITION. VSS AND PLEASANT/COOPERATIVE THERAPY ATTEMPTED MULTIPLE TIMES TO WORK WITH PT TODAY, BUT SHE REFUSED. CARE MANAGEMENT AND PALLIATIVE CARE ROUNDED ON PT TODAY. ABLE TO ASSIT WITH REPOSITIONING AND IS A 1 PERSON TO [facility] [place]. BLOOD SUGAR WAS 68 AT 1430, AFTER CONSUMING JUICE, HER CBG WAS 144 AT 1800. PT VOIDING, PASSING GAS, AND HAD A SMEAR. TOLERATED PO INTAKE, BUT HAS A LOW APPETITE. ENCOURAGED FAMILY TO BRING SNACKS FROM HOME. REPORTS TENDERNESS TO VAGINAL AREA, LABIA APPEARS RED AND SWOLLEN- MEDICATED
--- NOTE | 2018-10-03 23:50 | NUR ---
ASSUMED CARE AT 2230, REPORT RECIEVED FROM STUDENT NURSE, ALIX
[2018-10-04 04:59] LABS: Hematocrit 22.3 % (33.0-51.0); Hemoglobin 7.6 g/dL (11.5-16.0); Mean Corpuscular HGB 31.5 pg (26.0-34.0); Mean Corpuscular HGB Conc 34.1 g/dL (31.5-36.5); Mean Corpuscular Volume 93 fL (80-100); Mean Platelet Volume 9.7 fL (9.1-12.4); RDW Coefficient Variation 17.1 % (11.7-14.2); RDW Standard Deviation 53.6 fL (35.1-46.3); Red Blood Cell Count 2.41 M/mm3 (3.80-5.20)
--- NOTE | 2018-10-04 05:06 | NUR ---
SUMMARY: NO ACUTE CHANGE THIS SHIFT. PT IS A/O, WEAK TO GET TO COMMODE NEEDS 1 SBA. TELE AND VS STABLE. AFIBRILE. PT HAS PAIN AND SWELLING AT L LABIA, PT REFUSED LIDOCAIN CREAM APPLICATION TONIGHT. PT ON RA, HAS A DRY COUGH. NO ACUTE CONCERNS AT THIS TIME. WILL CTM PT STATUS.
[2018-10-04 05:48] LABS: White Blood Cell Count 0.45 K/mm3 (4.00-11.30)
[2018-10-04 05:54] LABS: BASOPHILS PERCENT AUTO 0 % (0-2); EOSINOPHILS PERCENT AUTO 0 % (0-6); IMMATURE GRAN ABSOLUTE AUTO 0.01 K/mm3 (0.00-0.10); IMMATURE GRAN PERCENT AUTO 2 % (0-1); LYMPHOCYTES ABSOLUTE AUTO 0.33 K/mm3 (0.84-5.20); LYMPHOCYTES PERCENT AUTO 73 % (21-46); MONOCYTES ABSOLUTE AUTO 0.07 K/mm3 (0.16-1.47); MONOCYTES PERCENT AUTO 16 % (4-13); NEUTROPHILS ABSOLUTE AUTO 0.04 K/mm3 (1.96-9.15); NEUTROPHILS PERCENT AUTO 9 % (41-73); Platelet Count 29 K/mm3 (150-400)
[2018-10-04 06:06] LABS: Albumin, Blood 1.8 g/dL (3.4-5.0); Albumin/Globulin Ratio 0.4 (0.8-1.8); Bilirubin, Total 1.6 mg/dL (0.1-1.0); Bun/Creatinine Ratio 28.2 (12.0-20.0); Calcium, Blood 8.7 mg/dL (8.5-10.1); Creatinine, Blood 0.99 mg/dL (0.40-1.00); Globulin, Blood 4.5 g/dL (2.2-4.0); Potassium, Blood 3.8 mmol/L (3.5-5.5); Total Protein, Blood 6.3 g/dL (6.4-8.2)
--- NOTE | 2018-10-04 09:40 | NUR ---
THERAPY WORKING WITH PT.
--- NOTE | 2018-10-04 09:49 | NUR ---
THERAPY WORKING WITH PT.
--- NOTE | 2018-10-04 10:37 | NUR ---
DR TATE HERE RECENTLY TO SEE PT.
--- NOTE | 2018-10-04 17:33 | NUR ---
Clinical Visit: Pt is resting in bed. She is alert, oriented X3. She reports low back pain and pain in groin area. She states it is severe, but she cannot give me a number on a scale of 0-10 at this time. It hurts more with movement. There are 3 family members at bedside; a son, a daughter, and a daughter in law. She states she has 5 children total and that she is very blessed. Her family is asking questions about prognosis, but the pt is fatigued and painful so I made plans to follow up with the family tomorrow to discuss. They decline to go through the chart with me since pt is not feeling up to it. She has been nauseated at times, painful. She is having dyspnea. She does have a low dose of fentanyl on her eMAR. Recommend giving this to see if dyspnea improves. Also recommend trying roxanol at some point if dyspnea doesn't improve. She does not look entirely comfortable: she has a pained, pinched look on her face. She appears somewhat depressed as she is stating that she isn't worthy or deserving to have such great children. She lives with her . He cooks and cleans,takes care of her. Requested pain medication from nurse, Jorgito. Provided a cup of ice and a cup of iced cranberry juice per request. She is asking to use the restroom. She uses the BSC and 1 person transfer. Plan to follow up with her tomorrow - discuss prognosis and further plan. She states that "everyone wants to talk about planning." She does state at this time that she has saved money for her cremation and service. She did not want to burden her children with that. Will remain available for this pt and family. Will need to come up with a plan for care; hospice should be discussed.
--- NOTE | 2018-10-04 19:48 | NUR ---
SHIFT SUMMARY PT BEEN ASSISTED WITH ADL'S PRN. PT BEEN REPOSITIONED MULT TIMES TODAY. PT BEEN STATING TO THIS RN THAT SHE DOES NOT NEED ANY PAIN MEDICATION. PT BEEN SEEN BY DR TATE AND DR AYALA TODAY. PT HAD IMAGING IN ROOM TODAY. FAMILY IN/OUT OF ROOM, WHICH WERE EDUCATED ON PT'S PRECAUTIONS. PT USING CALL LIGHT APPR. RESTING QUIETLY WHEN NOT DISTURBED.
--- NOTE | 2018-10-05 06:42 | NUR ---
SUMMARY: PT ADMITTED FOR NEUTROPENIC FEVER. NO ACUTE CHANGE TONIGHT. HIGHEST TEMP WAS 100.5. OTHERWISE AFIBRILE AND VSS. PT USING CALL LIGHT. UP TO COMMODE WITH ASSIST. PAINFUL WITH WIPING. PT OFFERED PAIN MEDS T/O NIGHT AND AGREED TO TYLENOL THIS AM. L LABIA IS SWOLLEN, NO DRAINAGE NOTED. NO ACUTE CONCERNS THIS AM. NEUROTPENIC PRECAUTIONS IN PLACE. WILL CTM AND REPORT TO DAY RN.
--- NOTE | 2018-10-05 08:10 | NUR ---
ASSESSMENT: PT SLEEPING AT THIS TIME. NO S/S DISTRESS. PT VSS. BLOOD SUGAR STABLE. CALL LIGHT IN REACH. WILL ALLOW REST AND FULLY ASSESS WHEN PT IS AWAKE.
[2018-10-05 11:05] LABS: Hematocrit 22.1 % (33.0-51.0); Hemoglobin 7.4 g/dL (11.5-16.0); Mean Corpuscular HGB 31.6 pg (26.0-34.0); Mean Corpuscular HGB Conc 33.5 g/dL (31.5-36.5); Mean Corpuscular Volume 94 fL (80-100); Mean Platelet Volume 10.4 fL (9.1-12.4); RDW Coefficient Variation 16.9 % (11.7-14.2); RDW Standard Deviation 54.4 fL (35.1-46.3); Red Blood Cell Count 2.34 M/mm3 (3.80-5.20)
[2018-10-05 11:06] LABS: BASOPHILS PERCENT AUTO 0 % (0-2); EOSINOPHILS PERCENT AUTO 0 % (0-6); IMMATURE GRAN ABSOLUTE AUTO 0.01 K/mm3 (0.00-0.10); IMMATURE GRAN PERCENT AUTO 2 % (0-1); LYMPHOCYTES ABSOLUTE AUTO 0.35 K/mm3 (0.84-5.20); LYMPHOCYTES PERCENT AUTO 73 % (21-46); MONOCYTES ABSOLUTE AUTO 0.08 K/mm3 (0.16-1.47); MONOCYTES PERCENT AUTO 17 % (4-13); NEUTROPHILS ABSOLUTE AUTO 0.04 K/mm3 (1.96-9.15); NEUTROPHILS PERCENT AUTO 8 % (41-73)
[2018-10-05 11:12] LABS: Platelet Count 16 K/mm3 (150-400); White Blood Cell Count 0.48 K/mm3 (4.00-11.30)
--- NOTE | 2018-10-05 12:30 | NUR ---
DIETARY: ADVERTISING EDITOR IN TO SEE PATIENT AND ASSIST WITH MEAL ORDERING.
--- NOTE | 2018-10-05 15:15 | NUR ---
PT HAS BEEN STABLE AND AFEBRILE THIS SHIFT. WBC COUNT IMPROVED BUT PLATELET COUNT DECREASED THIS AM. NO PLAN FOR TRANSFUSION AT THIS TIME. PT HAS BEEN GENERALLY WEAK. SAT IN CHAIR MOST OF THE DAY BUT DID NOT MOBILIZE WITH THERAPY. BSC X2. IV AT TKO. CONT IV ABX. POOR ORAL INTAKE. ENCOURAGING FLUIDS. DIETARY IN TO ASSIST WITH FOOD CHOICES. NAUSEA TREATED X1 WITH ZOFRAN, EFFECTIVE. LOTS OF FAMILY IN TO VISIT, ATTENTIVE. PT USES CALL LIGHT APPROPRIATELY NEEDED. BED ALARM ON FOR SAFETY.
--- NOTE | 2018-10-05 15:26 | NUR ---
assumed care of pt following report from previous rn shama, pt has just worked with physical therapy. pt states she would like to take a nap. call light within reach, bed rails up x 2, bed in lowest position
--- NOTE | 2018-10-05 17:30 | NUR ---
shift summary: vss, no acute changes, pt remained a/o x 4 yet at times appears to be forgetful. family visited pt this afternoon. pt worked with Physical therapy. pt reports pain in the groin/labial area, allowed lidocaine cream to be applied per mar. pt in attends but calls for toileting assistance to bedside commode. pt tolerated po intake, spoke with supervisor meter repair shop due to poor intake, encouraged pt to increase PO intake. urine output >350 ml thi shift
--- NOTE | 2018-10-06 07:20 | NUR ---
SUMMARY PT REMAINS IN NEUTROPENIC PRECAUTIONS. INCONT OF URINE. HAD X SMALL BM TONIGHT. NO C/O NAUSEA. C/O PAIN AT TIMES. ALTHOUGH REFUSING PAIN MEDS SO FAR. IN ROOM TALKING WITH PT AT THIS TIME.
--- NOTE | 2018-10-06 09:31 | NUR ---
PT STATES SHE SPOKE WITH DR. JOHN THIS AM REGARDING END OF LIFE CARE AND SHE WOULD LIKE TO GO HOME TO BE WITH HER FAMILY TODAY, STATES SHE DISCUSSED BEING HOME ON HOSPICE, STATES SHE HAS AN ADJUSTABLE BED AT HOME, A WALKER, W/C AND A BEDSIDE COMMODE, AND HER FAMILY WILL STAY WITH HER, EXPLAINED TO PT THAT HOSPICE MIGHT NOT BE ABLE TO ADMIT HER UNTIL NEXT WEEK AND SHE WAS OK WITH THAT, DR. TATE NOTIFIED STATES HE WILL COME AND TALK TO THE PT, LEFT A MESSAGE FOR DR. JOHN TO CALL DEJAH, PT'S DAUGHTER PER HER REQUEST.
--- NOTE | 2018-10-06 10:17 | NUR ---
Palliative Care visit after review of EMR and case conferences with pt's RN and . After visit with Dr Petersen this am, pt is requesting d/c home with hospice. She does not want any further transfusions but to be home with her family at this time. [facility] contacted by pt's RN and they cannot see pt until Monday. Pt and family are aware of this. Time spent with DIL and pt for assessment and review of meds, instructions. They were given a copy of [facility] brochure with both regular and after hours numbers to call and my phone number to call with questions over the weekend. Pt has a lift chair, WC, motorized wheel chair. I recommended pt rest in lift chair where her position could be changed easily and with comfort to her. Recommended to put lift sheet under her and buy attends to use prn. Discussed meds for comfort with Dr and in depth with daughter. Granddaughter, with some hospice experience will be present in the home also, as well as all five children. Pt's chief c/o of pain is labial area and low back. Requested that pt receive some pain medication prior to transport home and now per eMar prn. Pt appears profoundly fatigued with pallor, sob with conversation and mvmt. She is grimacing with attempts to reposition herself in her chair. RN recommends transport home due to weakness and RN has contacted Hospice with d/c orders and will fax them also. writing Rxs for ativan and Roxanol as well as other dc medications per his orders. Pt has been consistent in her request to be d/c'd home [place] this am. Time spent in [place] listening and supporting pt's daughter in law. They are very happy she is going home today, "She is tired". Dil appropriately tearful and aware pt may decline or even pass prior to hospice admission on Monday. Copy of pt's POLST form given to her with instructions to call hospice agency and not 911 if pt were to stop breathing. KENYON verbalizes understanding of all instructions given.
[2018-10-06] MEDS ORDERED: ONDA4ODT PO (10:31)
[2018-10-06] MEDS ORDERED: LORA1 PO (10:32)
[2018-10-06] MEDS ORDERED: MORP20L PO (10:33)
--- NOTE | 2018-10-06 11:41 | NUR ---
DISCHARGE PT DC'D HOME ON HOSPICE WITH FAMILY, DC INSTRUCTIONS GIVEN TO PT AND FAMILY, VERBALIZED UNDERSTANDING, HOSPICE TO FOLLOW.
== END 2018-10-06 11:42 | disposition hospice, home (50) | DRG 812 ==
LOC: ER 12:37 → SURS 15:53
PROVIDERS: Emergency Medicine; Internal Medicine; Internal Medicine Hematology & Oncology; ADMIT Student in an Organized Health Care Education/Training Program
PROC: 30233R1 Transfusion of Nonautologous Platelets into Peripheral Vein, Percutaneous Approach (ICD-10-PCS; principal; 2018-09-30)
DX: D46.9 Myelodysplastic syndrome, unspecified (principal); D61.818 Other pancytopenia; N39.0 Urinary tract infection, site not specified; E87.1 Hypo-osmolality and hyponatremia; J44.9 Chronic obstructive pulmonary disease, unspecified; M10.9 Gout, unspecified; E11.22 Type 2 diabetes mellitus with diabetic chronic kidney disease; N18.3 Chronic kidney disease, stage 3 (moderate); E78.5 Hyperlipidemia, unspecified; Z87.891 Personal history of nicotine dependence; I12.9 Hypertensive chronic kidney disease with stage 1 through stage 4 chronic kidney disease, or unspecified chronic kidney disease; Q92.8 Other specified trisomies and partial trisomies of autosomes; R32 Unspecified urinary incontinence; N76.2 Acute vulvitis; B96.4 Proteus (mirabilis) (morganii) as the cause of diseases classified elsewhere; Z79.84 Long term (current) use of oral hypoglycemic drugs
CPT/HCPCS: 36415; 36430; 71046; 76857; 80053; 81001; 82947; 83605; 84484; 85025; 86850; 86900; 86901; 86923; 87040; 87077; 87086; 87186; 93005; 93010; 96365; 97110; 97163; 97166; 97530; 99285-25; J0692; J1447; J2405; J2543; J7030; J7120; P9016; P9035